=== PATIENT | female | born 1950 | race Caucasian/White ===

== ENCOUNTER 2017-04-15 12:09 | Outpatient (CLI) | payer BC | END 2017-04-15 12:10 | disposition home or self-care (01) | LOC: BICMAMMO 12:09 | PROVIDERS: ATTEND Internal Medicine | DX: Z12.31 Encounter for screening mammogram for malignant neoplasm of breast (principal) | CPT/HCPCS: 77063; 77067 ==

== ENCOUNTER 2018-11-17 05:45 | Day surgery (SDC) | payer MEDICARE ==
[2018-11-16 10:21] VITALS: BMI 25.4
[2018-11-17] MEDS ORDERED: EPINEPHrine 0.3 MG in Ophthalmic Irrigation Solution 500 ML IVP SCH (06:00)
[2018-11-17] MEDS ORDERED: Cyclopentolate 1% Opth Drop 2 ML BOT ONE (06:17)
[2018-11-17] MEDS ORDERED: Phenylephrine 2.5% Ophth Soln 5 ML BOT ONE (06:17)
[2018-11-17] MEDS ORDERED: Midazolam HCl 2 mg/2 ml Vial ONE (06:19)
[2018-11-17] MEDS ORDERED: Indocyanine Green 25 MG/10 ML VIAL ONE (09:44)
[2018-11-17] MEDS ORDERED: CEFAZOLIN 1 GM VIAL ONE (09:44)
[2018-11-17] MEDS ORDERED: Lidocaine 4% PF 5 ML AMP ONE (09:44)
[2018-11-17] MEDS ORDERED: Maxitrol 0.1% Opth Oint 3.5 GM TUBE ONE (09:44)
[2018-11-17] MEDS ORDERED: Lidocaine 1% PF 5 ML VIAL ONE (09:44)
[2018-11-17] MEDS ORDERED: PROPOFOL 200 MG/20 ML VIAL ONE (09:44)
[2018-11-17] MEDS ORDERED: Bupivacaine 10 ML VIAL ONE (09:44)
[2018-11-17] MEDS ORDERED: Triamcinolone 40 MG/ML VIAL ONE (09:44)
--- NOTE | 2018-11-17 10:32 | OP ---
DATE OF PROCEDURE: 11/17/2018 PRINCIPAL PREOPERATIVE DIAGNOSIS: Epiretinal membrane, right eye. POSTOPERATIVE DIAGNOSIS: Epiretinal membrane, right eye. PROCEDURES PERFORMED: 1. 25-gauge pars plana vitrectomy, right eye. 2. Epiretinal membrane with internal limiting membrane removal, right eye. ESTIMATED BLOOD LOSS: None. SPECIMENS REMOVED: None. COMPLICATIONS: None. ANESTHESIA: MAC with retrobulbar block. DESCRIPTION OF PROCEDURE: The patient was identified in the preoperative holding area, where the correct eye being the right eye was marked for surgery. The patient was taken to the operating room, where MAC anesthesia was induced. A retrobulbar block was administered to the right eye. The block consisted of 1:1 ratio of 2% lidocaine and 0.75% Marcaine. Total of 5 mL was administered. The right eye was then prepped and draped in the usual sterile ophthalmic fashion for surgery. A wire lid speculum was placed. A standard 25-gauge pars plana vitrectomy platform was fashioned with the trocars placed approximately 3.5 mm from the limbus. The infusion was noted to be within the vitreous cavity prior to being turned on to an infusion pressure of 30 mmHg. The light pipe Micro vitrector was introduced into the eye under visualization with a BIOM viewing system. A careful core and peripheral shave vitrectomy was performed. Following vitrectomy, ICG dye was used to stain the internal limiting membrane. Using the Krystian ILM Forceps, the epiretinal membrane and internal limiting membrane were gently peeled in a circumferential fashion about the fovea. The peel extended approximately 2 disc diameters in radius from the fovea circumferentially. Following peeling, the Micro vitrector was re-introduced into the eye to remove any residual vitreous debris. The cannulas were sequentially removed, and all sclerotomies were noted to be watertight. Subconjunctival Ancef and dexamethasone were administered. The wire lid speculum was removed followed by application of Tobradex ophthalmic ointment and light patch and shield. The patient tolerated the procedure well and was taken to the outpatient recovery area in good condition. Job ID: [id number]
== END 2018-11-17 08:34 | disposition home or self-care (01) ==
LOC: EDBD → SDC 05:45
PROVIDERS: ATTEND Ophthalmology Retina Specialist
PROC: 08T43ZZ Resection of Right Vitreous, Percutaneous Approach (ICD-10-PCS; principal; 2018-11-17)
PROC: 08NE3ZZ Release Right Retina, Percutaneous Approach (ICD-10-PCS; 2018-11-17)
DX: H35.371 Puckering of macula, right eye (principal); E78.5 Hyperlipidemia, unspecified; F17.200 Nicotine dependence, unspecified, uncomplicated; Z79.899 Other long term (current) drug therapy
CPT/HCPCS: J0171; J0690; J2001; J2250; J2704; J3301; J3490

== ENCOUNTER 2019-03-21 10:10 | Outpatient (CLI) | payer MEDICARE ==
--- NOTE | 2019-03-21 11:35 | BD ---
BONE DENSITOMETRY USING DEXA: HISTORY: Post menopausal screening for osteoporosis. FINDINGS: LUMBAR SPINE BMD (g/cm2) T-SCORE Z-SCORE L1 0.833 -1.4 0.3 L2 0.948 -0.7 1.2 L3 0.965 -1.1 1.0 L4 1.090 0.3 2.4 TOTAL 0.969 -0.7 1.3 BMD (g/cm2) T-SCORE Z-SCORE NECK 0.706 -1.3 0.4 TOTAL 0.909 -0.3 1.1 There has been interval improvement of 0.4% in the BMD of the lumbar spine and a reduction of 4.8% in the BMD of the proximal femur since 09/16/2006. The ten year fracture risk for a major osteoporotic fracture is 9.3% and for a hip fracture is 1%. IMPRESSION: Osteopenia. POS: BRUNO
--- NOTE | 2019-03-21 15:06 | MMO ---
Bilateral MAMMO Bilat Screen [facility]. CLINICAL HISTORY: Patient is 68 years old and is seen for screening. The patient has no family history of breast cancer. The patient has no personal history of cancer. VIEWS: The views performed were: bilateral craniocaudal with tomosynthesis; bilateral mediolateral oblique with tomosynthesis; bilateral exaggerated craniocaudal; and right mediolateral oblique. FILMS COMPARED: The present examination has been compared to prior imaging studies performed at [facility] on 03/22/2012, 12/06/2014, 02/07/2016 and 04/15/2017. This study has been interpreted with the assistance of computer-aided detection. MAMMOGRAM FINDINGS: The breasts are heterogeneously dense, which could obscure a lesion on mammography. There are benign appearing calcifications seen in both breasts. There are no suspicious masses, suspicious calcifications, or new areas of architectural distortion. IMPRESSION: THERE IS NO MAMMOGRAPHIC EVIDENCE OF MALIGNANCY. A ROUTINE FOLLOW-UP MAMMOGRAM IN 1 YEAR IS RECOMMENDED. THE RESULTS OF THIS EXAM WERE SENT TO THE PATIENT. ACR BI-RADS Category 2 - Benign finding MAMMOGRAPHY NOTE: 1. A negative mammogram report should not delay a biopsy if a dominant of clinically suspicious mass is present. 2. Approximately 10% to 15% of breast cancers are not detected by mammography. 3. Adenosis and dense breasts may obscure an underlying neoplasm. Reported by: MEAGAN CHAMPION MD Electonically Signed: [id number]
== END 2019-03-21 10:11 | disposition home or self-care (01) ==
LOC: BICMAMMO 10:10
PROVIDERS: ATTEND Internal Medicine
DX: Z12.31 Encounter for screening mammogram for malignant neoplasm of breast (principal); M81.0 Age-related osteoporosis without current pathological fracture; M85.80 Other specified disorders of bone density and structure, unspecified site
CPT/HCPCS: 77063; 77067; 77080

== ENCOUNTER 2020-04-03 11:29 | Outpatient (CLI) | payer MEDICARE ==
--- NOTE | 2020-04-03 11:59 | MMO ---
Bilateral MAMMO Bilat Screen [facility]. CLINICAL HISTORY: Patient is 70 years old and is seen for screening. The patient has no family history of breast cancer. The patient has no personal history of cancer. VIEWS: The views performed were: bilateral craniocaudal with tomosynthesis and bilateral mediolateral oblique with tomosynthesis. FILMS COMPARED: The present examination has been compared to prior imaging studies performed at [facility] on 12/06/2014, 02/07/2016, 04/15/2017 and 03/21/2019. This study has been interpreted with the assistance of computer-aided detection. MAMMOGRAM FINDINGS: The breasts are heterogeneously dense, which could obscure a lesion on mammography. Finding 1: There are stable benign appearing calcifications seen in both breasts. Finding 2: There are stable benign appearing densities seen in both breasts. There are no suspicious masses, suspicious calcifications, or new areas of architectural distortion. IMPRESSION: THERE IS NO MAMMOGRAPHIC EVIDENCE OF MALIGNANCY. A ROUTINE FOLLOW-UP MAMMOGRAM IN 1 YEAR IS RECOMMENDED. THE RESULTS OF THIS EXAM WERE SENT TO THE PATIENT. ACR BI-RADS Category 2 - Benign finding MAMMOGRAPHY NOTE: 1. A negative mammogram report should not delay a biopsy if a dominant of clinically suspicious mass is present. 2. Approximately 10% to 15% of breast cancers are not detected by mammography. 3. Adenosis and dense breasts may obscure an underlying neoplasm. Reported by: JAMAL HER MD Electonically Signed: [id number]
== END 2020-04-03 11:30 | disposition home or self-care (01) ==
LOC: BICMAMMO 11:29
PROVIDERS: ATTEND Internal Medicine
DX: Z12.31 Encounter for screening mammogram for malignant neoplasm of breast (principal)
CPT/HCPCS: 77063; 77067

== ENCOUNTER 2021-04-07 10:47 | Outpatient (CLI) | payer MEDICARE | END 2021-04-07 10:48 | disposition home or self-care (01) | LOC: BICMAMMO 10:47 | PROVIDERS: ATTEND Internal Medicine | DX: Z12.31 Encounter for screening mammogram for malignant neoplasm of breast (principal) | CPT/HCPCS: 77063; 77067 ==

== ENCOUNTER 2022-10-28 10:02 | Outpatient (CLI) | payer MEDICARE | END 2022-10-28 10:03 | disposition home or self-care (01) | LOC: BICMAMMO 10:02 | PROVIDERS: ATTEND Internal Medicine | DX: Z12.31 Encounter for screening mammogram for malignant neoplasm of breast (principal) | CPT/HCPCS: 77063; 77067 ==

== ENCOUNTER → 2024-11-17 | Outpatient (CLI) | payer MEDICARE | LOC: BICMAMMO 13:00 | PROVIDERS: ATTEND Internal Medicine | DX: Z12.31 Encounter for screening mammogram for malignant neoplasm of breast (principal) | CPT/HCPCS: 77063; 77067 ==